=== PATIENT | male | born 1955 | race Caucasian/White ===

== ENCOUNTER 2022-03-20 18:58 | Emergency (ER) | payer OTHER ==
[~2022-03-20] VITALS: Ht 172.7 cm; Wt 99.8 kg
[~2022-03-20 18:58] MED LIST: ALBU90I INH; ALBU90OI INH; AMOX500 PO; ASPI325EC; AZIT250 PO; BENZ100A PO; BISA5EC PO; BP MEDICATION; CEPH500 PO; CETI10 PO; CETI5 PO; CODACE30 PO; CODGUAEL PO; CYCL10 PO; DIPH50 PO; Flexeril 10 mg10 MG PO; GUAI600T33 PO; HYDACE10B PO; HYDACE5 PO; HYDACE5325 PO; HYDHCL25 PO; IBUP800 PO; KETO10 PO; LIDO5TP TOP; LISHYD2025 PO; LISI20 PO; LISI5 PO; LORA2 PO; MECL25 PO; METCAR750 PO; METPRE4DP PO; NAPR500 PO; NAPR500EC PO; NAPR550 PO; NEOPOLHYDS RIGHTEAR; OXYACE5T PO; POLY17UD PO; PSEU120ER PO; PSYL5.85P PO; Prednisone20 MG PO; RXCODACET PO; RXCYCL10 PO; RXOXYACE PO; Robaxin-750750 MG PO; SULF10OPSA OD; SULTRIDS PO; Sudafed 12 Hou120 MG PO; TOBR.3OPSO OP; TRAM50 PO; TYLENOL; VICODIN 5-3001 EACH; Valium5 MG PO; ZOLP10 PO; Zithromax250 MG PO; [UNRECOGNIZED DRUG - REMARK]
== END 2022-03-20 21:33 | disposition home or self-care (01) ==
LOC: ER 18:58
DX: E86.0 Dehydration (principal); I10 Essential (primary) hypertension; Z79.899 Other long term (current) drug therapy
CPT/HCPCS: 93005; 93010

== ENCOUNTER 2024-12-01 19:36 | Emergency (ER) | payer BC ==
[~2024-12-01] VITALS: Ht 172.7 cm; Wt 97.5 kg
[2024-12-01 19:40] VITALS: BP 195/95
== END 2024-12-01 21:03 | disposition left against medical advice (07) ==
LOC: ER 19:36
DX: M54.9 Dorsalgia, unspecified (principal); Z53.29 Procedure and treatment not carried out because of patient's decision for other reasons
CPT/HCPCS: 99281

== ENCOUNTER 2024-12-02 11:17 | Emergency (ER) | payer OTHER ==
[~2024-12-02] VITALS: Ht 172.7 cm; Wt 97.5 kg
[2024-12-02 12:31] VITALS: BP 188/101
[2024-12-02] MEDS ORDERED: Ketorolac Tromethamine 30mg Vial IM ONE (15:00)
== END 2024-12-02 15:12 | disposition home or self-care (01) ==
LOC: ER 11:17
DX: S39.012A Strain of muscle, fascia and tendon of lower back, initial encounter (principal); I10 Essential (primary) hypertension; W01.0XXA Fall on same level from slipping, tripping and stumbling without subsequent striking against object, initial encounter
CPT/HCPCS: J1885